=== PATIENT | female | born 1990 | race African-American/Black ===

== ENCOUNTER 2018-01-26 07:54 | Inpatient (IN) | payer MEDICAID ==
[~2018-01-26] VITALS: Ht 162.6 cm; Wt 76.7 kg
[2018-01-26 10:53] LABS: CLARITY URINE CLEAR (CLEAR); COLOR URINE YELLOW (YELLOW); KETONES URINE TRACE (NEGATIVE); LEUKOCYTE ESTERASE URINE NEGATIVE (NEGATIVE); NITRITE URINE NEGATIVE (NEGATIVE); OCCULT BLOOD URINE NEGATIVE (NEGATIVE); PROTEIN URINE NEGATIVE (NEGATIVE); UROBILINOGEN URINE 0.2 E.U./dL (0.2-1.0)
[2018-01-26 12:48] LABS: BASOPHILS % 0.6 % (0.0-2.0); EOSINOPHILS % 1.3 % (0.0-5.0); HEMATOCRIT. 34.4 % (36.0-48.0); HEMOGLOBIN. 11.4 g/dL (12.0-16.0); MEAN CORPUSCULAR HEMOGLOBIN 25.5 pg (28.0-32.0); MEAN PLATELET VOLUME 8.2 fl (7.4-10.4); MONOCYTES % 9.2 % (2.0-8.0); NEUTROPHILS % 63.9 % (40.0-76.0); PLATELET 373 x1000/uL (130-400); RED BLOOD CELL COUNT 4.47 mill/uL (4.2-5.4); RED CELL DISTRIBUTION WIDTH 17.8 % (11.6-14.6)
[2018-01-26 12:57] LABS: CHLORIDE 104 mEq/L (98-107)
[2018-01-26 12:59] LABS: HCG SCREEN NEGATIVE
[2018-01-26] MEDS ORDERED: ONDANSETRON HCL 4MG/2ML INJ IV STA (13:12)
[2018-01-26] MEDS ORDERED: FENTANYL CITRATE/PF 50MCG/ML 2ML VIAL IV ONE (13:15)
[2018-01-26] MEDS ORDERED: IOHEXOL-300 100 ML BOTTLE ONE (15:14)
[2018-01-26] MEDS ORDERED: CEFOXITIN SODIUM 2 G in DEXT 5% WATER 100 ML IV SCH (16:00)
[2018-01-26] MEDS ORDERED: DEXT 5%/0.45% NACL 1000ML 1,000 ML IV SCH (19:45)
[2018-01-26] MEDS ORDERED: HYDROMORPHONE HCL/PF 2MG/ML CPJ IV PRN ×2 (19:45→22:30)
[2018-01-26] MEDS ORDERED: ONDANSETRON HCL 4MG/2ML INJ IV PRN ×2 (20:00→21:15)
[2018-01-26] MEDS ORDERED: MIDAZOLAM HCL 2 MG/2 ML VIAL ONE (20:17)
[2018-01-26] MEDS ORDERED: FENTANYL CITRATE/PF 50MCG/ML 2ML VIAL ONE (20:17)
[2018-01-26] MEDS ORDERED: EPHEDRINE SULFATE 50MG/ML VIAL ONE (20:18)
[2018-01-26] MEDS ORDERED: LIDOCAINE HCL/PF 1% 10 MG/ML 5ML VIAL ONE (20:18)
[2018-01-26] MEDS ORDERED: PROPOFOL 200MG/20ML VIAL IV ONE (20:18)
[2018-01-26] MEDS ORDERED: SKIN ADHESIVE 0.7 GM EA TOP ONE (20:18)
[2018-01-26] MEDS ORDERED: BUPIVACAINE HCL 0.5% (5MG/ML) 50ML ONE (20:18)
[2018-01-26] MEDS ORDERED: SODIUM CHLORIDE 0.9% 10ML VIAL ONE (20:18)
[2018-01-26] MEDS ORDERED: ROCURONIUM BROMIDE 10MG/ML VIAL 5ML IV ONE (20:22)
[2018-01-26] MEDS ORDERED: SUCCINYLCHOLINE CHLORIDE 200MG/10ML IV ONE (20:22)
[2018-01-26] MEDS ORDERED: TERBUTALINE SULFATE 1MG/ML VIAL ONE (20:24)
[2018-01-26] MEDS ORDERED: HYDROCODONE/ACETAMINOPHEN 5/325MG TABLET PO PRN ×2 (21:15)
[2018-01-26] MEDS ORDERED: ACETAMINOPHEN 325MG TABLET PO PRN (21:15)
[2018-01-26] MEDS ORDERED: DEXAMETHASONE 4MG/ML 1ML VIAL ONE (21:43)
[2018-01-26] MEDS ORDERED: ONDANSETRON HCL 4MG/2ML INJ ONE (21:44)
[2018-01-26] MEDS ORDERED: METOCLOPRAMIDE HCL 10MG/2ML VIAL ONE (21:44)
[2018-01-26] MEDS ORDERED: NEOSTIGMINE METHYLSULFATE 1MG/ML 10 ML VIAL ONE (21:53)
[2018-01-26] MEDS ORDERED: GLYCOPYRROLATE 0.2 MG/ML 2ML VIAL ONE (21:53)
[2018-01-26 23:45] VITALS: BP 105/59
[2018-01-27] VITALS: BP 105/59
[2018-01-27] MEDS ORDERED: MORPHINE SULFATE 4 MG/ML CPJ (NOT FOR IM USE) IV PRN ×2 (00:22)
[2018-01-27] MEDS: DEXT 5%/0.45% NACL KCL 20MEQ/L 1,000 ML IV SCH ×2 (03:48→12:00)
[2018-01-27 04:00] VITALS: BP 102/53
[2018-01-27] MEDS: SODIUM CHLORIDE 0.9% INJ 3ML FLUSH IVF SCH ×2 (06:31→14:00)
[2018-01-27 08:00] VITALS: BP 123/60
[2018-01-27 12:03] VITALS: BP 123/60
[2018-01-27 12:32] VITALS: BP 102/58
== END 2018-01-27 15:34 | disposition home or self-care (01) | DRG 234 ==
LOC: ER 07:54 → 6EST 14:41 → ENRESERV 19:42
PROVIDERS: ADMIT Internal Medicine; ATTEND Internal Medicine
PROC: 0DTJ4ZZ Resection of Appendix, Percutaneous Endoscopic Approach (ICD-10-PCS; principal; 2018-01-26 21:00)
DX: K35.80 Unspecified acute appendicitis (principal); D64.9 Anemia, unspecified; J45.909 Unspecified asthma, uncomplicated
CPT/HCPCS: 36415; 73706; 74177; 81025; 84703; 88304; 96365; 96375; 99285; A4216; C1893; J0330; J0694; J1100; J1170; J2250; J2405; J2704; J2710; J2765; J3010; J3105; J3490; J7030; J7060; Q9967